=== PATIENT | female | born 2000 | race Asian ===

== ENCOUNTER 2023-03-22 15:01 | Inpatient (IN) | payer BC ==
[~2023-03-22] VITALS: Ht 157.5 cm; Wt 72.6 kg
[2023-03-22] MEDS ORDERED: LIDOCAINE HCL 1% 20ML VIAL (Pyxis) INJ INFIL SCH (16:45)
[2023-03-22] MEDS ORDERED: OXYTOCIN 30 UNITS/500ML NS PMX 500 ML IV SCH (16:45)
[2023-03-22] MEDS ORDERED: METHYLERGONOVINE MALEATE 0.2 MG/ML IM PRN (16:45)
[2023-03-22] MEDS ORDERED: LACTATED RINGERS 1,000 ML IV SCH (16:45)
[2023-03-22] MEDS ORDERED: NALOXONE HCL 0.4 MG/ML 1ML VIAL IM PRN (16:45)
[2023-03-22] MEDS ORDERED: CARBOPROST TROMETHAMINE 250 MCG/ML AMPUL IM PRN (16:45)
[2023-03-22] MEDS ORDERED: MISOPROSTOL 100MCG TABLET VG SCH (16:45)
[2023-03-22 17:50] LABS: BASOPHILS % 0.2 % (0.0-2.0); HEMATOCRIT. 37.3 % (36.0-48.0); HEMOGLOBIN. 12.3 g/dL (12.0-16.0); LYMPHOCYTES % 10.2 % (20.0-50.0); MEAN CORPUSCULAR HEMOGLOBIN 29.4 pg (28.0-32.0); MEAN CORPUSCULAR VOLUME 89.3 fL (81.0-99.0); MONOCYTES % 10.3 % (2.0-8.0); NEUTROPHILS % 79.3 % (40.0-76.0); PLATELET 135 x1000/uL (130-400); RED BLOOD CELL COUNT 4.18 mill/uL (4.2-5.4); RED CELL DISTRIBUTION WIDTH 15.7 % (11.6-14.6)
[2023-03-22 17:58] LABS: INR 0.9; PROTHROMBIN TIME 9.9 sec (9.6-11.0)
[2023-03-22 17:59] LABS: CLARITY URINE CLOUDY (CLEAR); COLOR URINE YELLOW (YELLOW); KETONES URINE TRACE (NEGATIVE); LEUKOCYTE ESTERASE URINE TRACE (NEGATIVE); NITRITE URINE NEGATIVE (NEGATIVE); OCCULT BLOOD URINE 3+ (NEGATIVE); PROTEIN URINE 1+ (NEGATIVE); SPECIFIC GRAVITY URINE 1.013 (1.005-1.030)
[2023-03-22 18:10] LABS: *AMPHETAMINES SCREEN URINE NEGATIVE (NEGATIVE); *BARBITURATES SCREEN URINE NEGATIVE (NEGATIVE); *BENZODIAZEPINES SCREEN URINE NEGATIVE (NEGATIVE); *COCAINE SCREEN URINE NEGATIVE (NEGATIVE); CANNABINOID URINE SCREEN NEGATIVE (NEGATIVE); METHADONE URINE SCREEN NEGATIVE (NEGATIVE); OPIATES URINE SCREEN NEGATIVE (NEGATIVE); PHENCYCLIDINE URINE SCREEN NEGATIVE (NEGATIVE)
[2023-03-22 18:24] LABS: HEPATITIS B SURFACE ANTIGEN NEGATIVE
[2023-03-22] MEDS ORDERED: ACETAMINOPHEN 650MG/20.3ML UDC PO PRN (19:30)
[2023-03-22] MEDS: AMPICILLIN 2GM in NS 100ML 100 ML IV SCH (20:06)
[2023-03-22] MEDS: CLINDAMYCIN IV SCH ×2 (21:30→21:36)
[2023-03-22] MEDS: WATER IV SCH ×2 (21:30→21:36)
[2023-03-22] MEDS: DEXTROSE 5% IV SCH ×2 (21:30→21:36)
[2023-03-22] MEDS: CONTAINER EMPTY IV SCH ×2 (21:30→21:36)
[2023-03-22] MEDS ORDERED: MEPERIDINE HCL/PF 50MG/ML CPJ IM PRN (21:30)
[2023-03-22] MEDS ORDERED: ROPIVACAINE HCL/PF EPIDURAL 200 ML EPI ONE (21:38)
[2023-03-22] MEDS ORDERED: ROPIVACAINE HCL/PF EPIDURAL 200 ML EPI SCH (21:45)
[2023-03-22] MEDS: GENTAMICIN 120MG PREMIX 100 ML IV SCH (22:30)
[2023-03-23] MEDS: AMPICILLIN 2GM in NS 100ML 100 ML IV SCH ×4 (00:37→19:14)
[2023-03-23] MEDS ORDERED: MEPERIDINE HCL/PF 50MG/ML CPJ IV PRN (01:30)
[2023-03-23] MEDS: CLINDAMYCIN IV SCH (05:37)
[2023-03-23] MEDS: DEXTROSE 5% IV SCH (05:37)
[2023-03-23] MEDS: CONTAINER EMPTY IV SCH (05:37)
[2023-03-23] MEDS: WATER IV SCH (05:37)
[2023-03-23] MEDS: GENTAMICIN 120MG PREMIX 100 ML IV SCH (06:30)
[2023-03-23 07:30] LABS: CHLORIDE 108 mEq/L (98-107)
[2023-03-23] MEDS ORDERED: LIDOCAINE 2%/EPINEPHRINE 1:200,000 20 ML VIAL INJ ONE (08:00)
[2023-03-23] MEDS ORDERED: OXYTOCIN 30 UNITS/500ML NS PMX 500 ML IV SCH (10:30)
[2023-03-23] MEDS ORDERED: IBUPROFEN 400MG TABLET PO PRN (10:30)
[2023-03-23] MEDS ORDERED: RHO(D) IMMUNE GLOBULIN 300 MCG/SYR IM PRN (10:30)
[2023-03-23] MEDS ORDERED: IBUPROFEN 800MG TABLET PO PRN (10:30)
[2023-03-23] MEDS ORDERED: BISACODYL 10MG SUPP PR PRN (10:30)
[2023-03-23] MEDS ORDERED: GLYCERIN/WITCH HAZEL LEAF MEDICATED PAD TOP PRN (10:30)
[2023-03-23] MEDS ORDERED: HEMORRHOIDAL SUPP PR PRN (10:30)
[2023-03-23] MEDS ORDERED: BENZOCAINE/LANOLIN/ALOE VERA SPRAY TOP PRN (10:30)
[2023-03-23 11:00] VITALS: BP 107/59; PULSE 74; RESP 18; TEMP 97.6
[2023-03-23] MEDS: METRONIDAZOLE 500 MG PREMIX 100 ML IV SCH ×2 (14:17→21:30)
[2023-03-23] MEDS: MAGNESIUM/ALUMINUM HYDROXIDE/SIMETHICONE 30ML UDC PO SCH ×2 (14:25→20:55)
[2023-03-23] MEDS: SIMETHICONE 80MG TABLET CHEW PO SCH ×2 (14:25→20:55)
[2023-03-23 15:00] VITALS: BP 100/63; PULSE 72; RESP 18; TEMP 97.5
[2023-03-23] MEDS: GENTAMICIN 80MG PREMIX 100 ML IV SCH ×2 (15:20→23:15)
[2023-03-23 17:30] VITALS: BP 116/65; PULSE 72; RESP 18; TEMP 97.5
[2023-03-23 20:00] VITALS: BP 101/67; PULSE 73; RESP 18; O2SAT 98
[2023-03-23] MEDS: DOCUSATE SODIUM 100MG CAPSULE PO SCH (20:55)
[2023-03-23] MEDS ORDERED: ACETAMINOPHEN WITH CODEINE 300/30MG TABLET PO PRN (21:00)
[2023-03-24 00:25] VITALS: BP 116/71; PULSE 66; RESP 18
[2023-03-24] MEDS: AMPICILLIN 2GM in NS 100ML 100 ML IV SCH ×4 (00:40→20:24)
[2023-03-24 04:00] VITALS: BP 119/76; PULSE 86; RESP 18; TEMP 98.3
[2023-03-24] MEDS: METRONIDAZOLE 500 MG PREMIX 100 ML IV SCH ×3 (05:29→23:04)
[2023-03-24] MEDS: GENTAMICIN 80MG PREMIX 100 ML IV SCH ×2 (06:49→16:04)
[2023-03-24 06:55] LABS: CHLORIDE 110 mEq/L (98-107)
[2023-03-24 07:02] LABS: GENTAMICIN RANDOM 1.1 ug/mL
[2023-03-24 07:11] LABS: BASOPHILS % 0.3 % (0.0-2.0); EOSINOPHILS % 0.8 % (0.0-5.0); HEMATOCRIT. 30.4 % (36.0-48.0); HEMOGLOBIN. 10.2 g/dL (12.0-16.0); LYMPHOCYTES % 8.5 % (20.0-50.0); MEAN CORPUSCULAR HEMOGLOBIN 29.4 pg (28.0-32.0); MEAN CORPUSCULAR VOLUME 87.9 fL (81.0-99.0); MEAN PLATELET VOLUME 9.5 fl (7.4-10.4); MONOCYTES % 7.1 % (2.0-8.0); NEUTROPHILS % 83.3 % (40.0-76.0); PLATELET 119 x1000/uL (130-400); RED BLOOD CELL COUNT 3.46 mill/uL (4.2-5.4); RED CELL DISTRIBUTION WIDTH 15.4 % (11.6-14.6)
[2023-03-24 07:30] VITALS: BP 106/68; PULSE 89; RESP 18; TEMP 97.7; O2SAT 98
[2023-03-24] MEDS: FERROUS SULFATE 325MG TABLET PO SCH (08:23)
[2023-03-24] MEDS: MAGNESIUM/ALUMINUM HYDROXIDE/SIMETHICONE 30ML UDC PO SCH ×2 (08:23→20:34)
[2023-03-24] MEDS: SIMETHICONE 80MG TABLET CHEW PO SCH ×2 (08:23→20:34)
[2023-03-24] MEDS: PRENATAL VIT/FE FUMARATE/FA TABLET PO SCH (08:23)
[2023-03-24 16:30] VITALS: BP 106/72; PULSE 73; RESP 18; TEMP 97.6
[2023-03-24 19:30] VITALS: BP 113/73; PULSE 82; RESP 20; TEMP 97.9; O2SAT 98
[2023-03-24] MEDS: DOCUSATE SODIUM 100MG CAPSULE PO SCH (20:34)
[2023-03-25] MEDS: GENTAMICIN 80MG PREMIX 100 ML IV SCH (00:02)
[2023-03-25] MEDS: AMPICILLIN 2GM in NS 100ML 100 ML IV SCH (02:04)
[2023-03-25 04:00] VITALS: BP 102/61; PULSE 78; RESP 18; TEMP 98.5
[2023-03-25] MEDS: METRONIDAZOLE 500 MG PREMIX 100 ML IV SCH (06:49)
[2023-03-25 08:00] VITALS: BP 102/66; PULSE 76; RESP 18; TEMP 98.1; O2SAT 98
[2023-03-25] MEDS ORDERED: IBUP-2029 MT (08:17)
[2023-03-25] MEDS: PRENATAL VIT/FE FUMARATE/FA TABLET PO SCH (08:21)
[2023-03-25] MEDS: MAGNESIUM/ALUMINUM HYDROXIDE/SIMETHICONE 30ML UDC PO SCH (08:21)
[2023-03-25] MEDS: FERROUS SULFATE 325MG TABLET PO SCH (08:21)
[2023-03-25] MEDS: SIMETHICONE 80MG TABLET CHEW PO SCH (08:22)
[2023-03-25] MEDS ORDERED: TETANUS, DIPHTHERIA, PERTUSSIS VAC/PF 0.5ML (>10YR OLD) IM ONE (10:00)
[2023-03-25] MEDS ORDERED: METRONIDAZOLE 500MG TABLET PO SCH (14:00)
== END 2023-03-25 11:20 | disposition home or self-care (01) | DRG 806 ==
LOC: OBSVTOIN 15:01 → 8 EST LDRP 15:01 → 8EST 03-23 11:44
PROVIDERS: ADMIT Obstetrics & Gynecology; ATTEND Obstetrics & Gynecology
PROC: 10E0XZZ Delivery of Products of Conception, External Approach (ICD-10-PCS; principal; 2023-03-23)
PROC: 3E0R3BZ Introduction of Anesthetic Agent into Spinal Canal, Percutaneous Approach (ICD-10-PCS; 2023-03-23)
PROC: 00HU33Z Insertion of Infusion Device into Spinal Canal, Percutaneous Approach (ICD-10-PCS; 2023-03-23)
DX: O77.0 Labor and delivery complicated by meconium in amniotic fluid (principal); D62 Acute posthemorrhagic anemia; Z37.0 Single live birth; Z20.822 Contact with and (suspected) exposure to COVID-19; D69.6 Thrombocytopenia, unspecified; Z3A.39 39 weeks gestation of pregnancy; O72.3 Postpartum coagulation defects; O90.81 Anemia of the puerperium
CPT/HCPCS: 36415; 76805; 76818; 80048; 80170; 80305; 81003; 85025; 86592; 86703; 86762; 86850; 86900; 87340; 87426; 90715; 99281; G0378; J0290; J1580; J2175; J2795; J3490; J7060; J7120; A4315; J2590